=== PATIENT | female | born 1960 | race Caucasian/White ===

== ENCOUNTER → 2018-06-14 16:37 | Outpatient (CLI) | payer OTHER, MEDICAID, SELFPAY ==
[2018-06-14 17:25] LABS: Add Manual Diff / Slide Review NO; Basophils Percent Auto 0.8 % (0-2); Eosinophils Percent Auto 1.5 % (2-4); Hematocrit 44.7 % (36-46); Hemoglobin 14.8 g/dL (12.0-16.0); Lymphocytes Percent Auto 24.7 % (25-40); Mean Corpuscular Hemoglobin 28.5 PG (26-34); Mean Corpuscular Volume 86.4 fL (80-100); Monocytes Percent Auto 6.4 % (3-14); Neutrophils Absolute Auto 4500 /uL (3000-5900); Neutrophils Percent Auto 66.6 % (50-75); Platelet Count 243 X10^3/uL (150-400); Red Blood Cell Count 5.17 X10^6/uL (4.0-5.2); White Blood Cell Count 6.8 X10^3/uL (4.5-11.0)
[2018-06-14 17:41] LABS: Alanine Aminotransferase 45 IU/L (9-52); Albumin 3.6 g/dL (3.5-5.0); Albumin Globulin Ratio 1.6 (1.0-2.8); Alkaline Phosphatase 82 U/L (38-126); Aspartate Aminotransferase 35 IU/L (14-36); BUN Creatinine Ratio 18.9 (6-22); Bilirubin Total 0.4 mg/dL (0.2-1.3); Blood Urea Nitrogen 17 mg/dL (7-17); Carbon Dioxide 30 mmol/L (22-32); Chloride 97 mmol/L (98-107); Cholesterol 157 mg/dL (140-199); Estimated Glomerular Filt Rate > 60.0 mL/min (>60); Globulin 2.2 g/dL (1.7-4.1); Glucose 317 mg/dL (70-100); HDL Cholesterol 40 mg/dL (40-60); HEMOLYSIS 25 (0-50); LDL Cholesterol Calculated 84 mg/dL (<100); Potassium 4.5 mmol/L (3.4-5.1); Sodium 139 mmol/L (137-145); Total Protein 5.8 g/dL (6.3-8.2); Triglycerides 165 mg/dL (35-150)
[2018-06-14 18:13] LABS: TSH w/ Reflex to FT4 1.47 uIU/mL (0.47-4.68)
[2018-06-14 19:38] LABS: Hemoglobin A1C% w Est Avg Glu 12.3 % (4.0-6.0)
== END ==
PROVIDERS: PCP Family Medicine; Visit Provider Family Medicine
DX: E11.9 Type 2 diabetes mellitus without complications (principal)
CPT/HCPCS: 36415; 80053; 80061; 83036; 84443; 85025

== ENCOUNTER → 2018-12-13 16:10 | Outpatient (CLI) | payer OTHER, MEDICAID, SELFPAY ==
[2018-12-13 18:12] LABS: Hemoglobin A1C% w Est Avg Glu 7.1 % (4.0-6.0)
[2018-12-13 18:46] LABS: Blood Urea Nitrogen 19 mg/dL (7-17); Calcium 9.9 mg/dL (8.4-10.2); Carbon Dioxide 29 mmol/L (22-32); Chloride 98 mmol/L (98-107); Estimated Glomerular Filt Rate 57.4 mL/min (>60); Glucose 119 mg/dL (70-100); HEMOLYSIS < 15 (0-50); Potassium 4.1 mmol/L (3.4-5.1); Sodium 137 mmol/L (137-145)
[2018-12-13 18:50] LABS: Microalbumi Creatinin Ratio Ur 108.4 ug/mg CR (<30); Microalbumin Urine Random 6.4 mg/dL (0-1.6)
[2018-12-13 19:01] LABS: Vitamin D 25 Hydroxy (D3) 33.7 ng/mL (30.0-100.0)
== END ==
PROVIDERS: PCP Family Medicine; Visit Provider Family Medicine
DX: E11.65 Type 2 diabetes mellitus with hyperglycemia (principal); Z13.21 Encounter for screening for nutritional disorder
CPT/HCPCS: 36415; 80048; 82043; 82306; 82570; 83036

== ENCOUNTER → 2019-02-20 14:40 | Outpatient (CLI) | payer OTHER, MEDICAID, SELFPAY ==
--- NOTE | 2019-02-20 | DI.RAD.S_ITS ---
PROCEDURE: XR WRIST LT MIN 3V INDICATIONS: WRIST PAIN TECHNIQUE: 4 views of the wrist were acquired. COMPARISON: None. FINDINGS: Bones: No fractures or dislocations. No suspicious bony lesions. There is mild radiocarpal, first carpometacarpal and metacarpophalangeal joint degeneration. No bony erosions. Scaphoid view: Scaphoid is intact Soft tissues: No suspicious soft tissue calcifications. IMPRESSION: Mild degenerative joint disease. No bony erosions. Dictated by: Shalini Dumont M.D. on 02/20/2019 at 17:38 Approved by: Shalini Dumont M.D. on 02/20/2019 at 17:39
--- NOTE | 2019-02-20 14:44 | DI.RAD.S_ITS ---
PROCEDURE: XR WRIST RT MIN 3V INDICATIONS: bilateral CTS, patient has psoriasis TECHNIQUE: 4 views of the wrist were acquired. COMPARISON: None. FINDINGS: Bones: No fractures or dislocations. No suspicious bony lesions. There is mild radiocarpal, first carpometacarpal and metacarpophalangeal joint degeneration. No bony erosions. Scaphoid view: Scaphoid is intact Soft tissues: No suspicious soft tissue calcifications. IMPRESSION: Mild degenerative joint disease. No bony erosions. Dictated by: Shalini Dumont M.D. on 02/20/2019 at 17:37 Approved by: Shalini Dumont M.D. on 02/20/2019 at 17:38
== END ==
PROVIDERS: PCP Family Medicine; Visit Provider Family Medicine
DX: G56.03 Carpal tunnel syndrome, bilateral upper limbs (principal); M19.031 Primary osteoarthritis, right wrist; L40.9 Psoriasis, unspecified
CPT/HCPCS: 73110